=== PATIENT | male | born 1975 | race Caucasian/White ===

== ENCOUNTER 2017-02-07 17:11 | Emergency (ER) | payer SELFPAY ==
[2017-02-07] MEDS ORDERED: ONDANSETRON HCL INJ/PF 4 MG/2 ML SDV IV ONE (19:27)
[2017-02-07] MEDS ORDERED: HYDROMORPHONE HCL INJ/PF 2 MG/ML AMPULE IV ONE ×2 (19:27→21:48)
[2017-02-07] MEDS ORDERED: CLINDAMYCIN 600 MG/D5W RTU 50 ML IV ONE (19:27)
[2017-02-07] MEDS ORDERED: NORMAL SALINE 1000 ML 1,000 ML IV PRN (19:27)
--- NOTE | 2017-02-07 19:31 | ER Document Report ---
ED Medical Screen (RME) - General Chief Complaint: Testicular Pain Stated Complaint: TESTICULAR SWELLING Time Seen by Provider: 02/07/17 19:21 Mode of Arrival: Ambulatory Information source: Patient, [facility] Records TRAVEL OUTSIDE OF THE [place] IN LAST 30 DAYS: No - HPI Patient complains to provider of: scrotal pain Onset: Yesterday Onset/Duration: Gradual, Constant Quality of pain: Dull Severity: Moderate Associated Symptoms: None Exacerbated by: Denies Relieved by: Denies Similar symptoms previously: No Recently seen / treated by doctor: No Notes: 02/07/17 19:28 Patient is a 41-year-old male who presents with 2 days of progressive right testicular pain, swelling, and erythema. Patient denies any penile discharge or dysuria. No recent testicular trauma. No prior history of similar symptoms. No fevers. - Related Data Smoking: Non-smoker Allergies/Adverse Reactions: No Known Allergies Allergy (Verified 02/07/17 17:25) Past Medical History - General Information source: Patient, [facility] Records - Social History Frequency of alcohol use: None Drug Abuse: None - Medical History Medical History: Negative Renal/ Medical History: Denies: Hx Peritoneal Dialysis Past Surgical History: Reports: Hx Inguinal Hernia - Immunizations Hx Diphtheria, Pertussis, Tetanus Vaccination: Yes Review of Systems - Review of Systems Genitourinary: Other - Testicular pain -: Yes All other systems reviewed and negative Physical Exam - Vital signs Vitals: Temp Pulse Resp BP Pulse Ox 98.6 F 113 H 20 136/79 H 100 02/07/17 17:25 02/07/17 17:25 02/07/17 17:25 02/07/17 17:25 02/07/17 17:25 Interpretation: Normal, Tachycardic - General General appearance: Appears well, Alert In distress: Mild - Appears quite uncomfortable, diaphoretic - Respiratory Respiratory status: No respiratory distress Chest status: Nontender Breath sounds: Normal Chest palpation: Normal - Cardiovascular Rhythm: Regular Heart sounds: Normal auscultation Murmur: No - Abdominal Inspection: Normal Distension: No distension Bowel sounds: Normal Tenderness: Nontender Organomegaly: No organomegaly - Genitourinary Tenderness: Testicle tender, Other - Right hemiscrotum is moderately erythematous, exquisitely tender to palpation. Circumcised male. No penile discharge. - Extremities General upper extremity: Normal inspection, Nontender, Normal color, Normal ROM , Normal temperature General lower extremity: Normal inspection, Nontender, Normal color, Normal ROM , Normal temperature, Normal weight bearing. No: Presley's sign - Neurological Neuro grossly intact: Yes Cognition: Normal Orientation: AAOx4 [place] Coma Scale Eye Opening: Spontaneous [place] Coma Scale Verbal: Oriented [place] Coma Scale Motor: Obeys Commands Hayde Coma Scale Total: 15 Speech: Normal Motor strength normal: LUE, RUE, LLE, RLE Sensory: Normal - Skin Skin Moisture: Diaphoretic Course - Re-evaluation Re-evalutation: 02/07/17 19:30 Patient with likely scrotal cellulitis. Ultrasound pending. Patient will require further evaluation and management in the emergency department treatment area. Disposition is pending that evaluation. - Vital Signs Vital signs: Temp Pulse Resp BP Pulse Ox 98.6 F 113 H 20 136/79 H 100 02/07/17 17:25 02/07/17 17:25 02/07/17 17:25 02/07/17 17:25 02/07/17 17:25
[2017-02-07 20:18] LABS: ABSOLUTE EOSINOPHILS # (AUTO) 0.1 10^3/uL (0.0-0.6); ABSOLUTE LYMPHOCYTES (AUTO) 1.7 10^3/uL (0.5-4.7); ABSOLUTE MONOCYTES (AUTO) 1.5 10^3/uL (0.1-1.4); ABSOLUTE NEUT (AUTO) 13.6 10^3/uL (1.7-8.2); BASOPHILS % (AUTO) 0.2 % (0-2); EOSINOPHILS % (AUTO) 0.5 % (0-6); HEMATOCRIT 43.3 % (37.9-51.0); HEMOGLOBIN 14.3 g/dL (13.5-17.0); HGB HCT DIFFERENCE -0.4; MEAN CORPUSCULAR HEMOGLOBIN 28.2 pg (27.0-33.4); MEAN CORPUSCULAR HGB CONC 32.9 g/dL (32.0-36.0); MEAN CORPUSCULAR VOLUME 86 fl (80-97); MONOCYTES % (AUTO) 9.1 % (3-13); RED BLOOD COUNT 5.06 10^6/uL (4.35-5.55); RED CELL DISTRIBUTION WIDTH 13.2 % (11.5-14.0); SEGMENTED NEUTROPHILS % (AUTO) 80.2 % (42-78)
[2017-02-07 20:35] LABS: ALANINE AMINOTRANSFERASE 23 U/L (21-72); ALBUMIN 4.3 g/dL (3.5-5.0); ALKALINE PHOSPHATASE 99 U/L (38-126); ANION GAP 12 (5-19); ASPARTATE AMINO TRANSFERASE 20 U/L (17-59); BILIRUBIN,DIRECT 0.2 mg/dL (0.0-0.4); BILIRUBIN,TOTAL 0.6 mg/dL (0.2-1.3); BLOOD UREA NITROGEN 17 mg/dL (7-20); CALCIUM 9.7 mg/dL (8.4-10.2); CARBON DIOXIDE 29 mmol/L (22-30); CHLORIDE 100 mmol/L (98-107); CREATININE RESULT 0.87 mg/dL (0.52-1.25); GLUCOSE 96 mg/dL (75-110); SODIUM 141.1 mmol/L (137-145); TOTAL PROTEIN 7.6 g/dL (6.3-8.2)
--- NOTE | 2017-02-07 21:38 | RADIOLOGY REPORT (SQ) ---
EXAM DESCRIPTION: U/S SCROTUM W/DOPPLER COMPLETED DATE/TIME: 02/07/2017 9:24 pm REASON FOR STUDY: right testicular swelling and pain COMPARISON: None. TECHNIQUE: Static and realtime calderon scale imaging of the scrotum and testes. Selected color Doppler and spectral images recorded to document blood flow. LIMITATIONS: None. FINDINGS: RIGHT: TESTICLE: Normal size. Normal echotexture. Normal blood flow. No mass. EPIDIDYMIS: Slightly heterogeneous HYDROCELE OR VARICOCELE: Small hydrocele HERNIA OR EXTRA-TESTICULAR MASS: No. OTHER: No other significant finding. LEFT: TESTICLE: Normal size. Normal echotexture. Normal blood flow. No mass. EPIDIDYMIS: Small cyst. Heterogeneous. HYDROCELE OR VARICOCELE: Small hydrocele HERNIA OR EXTRA-TESTICULAR MASS: No. OTHER: No other significant finding. IMPRESSION: No evidence for testicular mass or torsion. Bilateral small hydroceles. TECHNICAL DOCUMENTATION: JOB ID: [id number] [employer]- All Rights Reserved
[2017-02-07] MEDS ORDERED: CEFTRIAXONE 1 GM/D5W RTU 50 ML IV ONE (21:47)
--- NOTE | 2017-02-07 21:48 | ER Document Report ---
ED GI/ - General Mode of Arrival: Ambulatory Information source: Patient TRAVEL OUTSIDE OF THE [place] IN LAST 30 DAYS: No <MYRA MALDONADO - Last Filed: 02/07/17 23:59> <TEETEE KILLIAN - Last Filed: 02/08/17 00:18> - General Chief Complaint: Testicular Pain Stated Complaint: TESTICULAR SWELLING Time Seen by Provider: 02/07/17 19:21 Notes: Patient is a 5-year-old male who presents to the emergency department today with complaints of right-sided testicular pain. Patient states it began yesterday and started gradually. Patient is sexually active. Patient denies any pain with bowel movement. (MYRA MALDONADO) - Related Data Allergies/Adverse Reactions: No Known Allergies Allergy (Verified 02/07/17 17:25) Past Medical History - General Information source: Patient, [facility] Records - Social History Smoking Status: Current Every Day Smoker Cigarette use (# per day): Yes Frequency of alcohol use: None Drug Abuse: None Lives with: Family Family History: Reviewed & Not Pertinent Patient has suicidal ideation: No Patient has homicidal ideation: No - Medical History Medical History: Negative Past Surgical History: Reports: Hx Inguinal Hernia - Immunizations Hx Diphtheria, Pertussis, Tetanus Vaccination: Yes <MYRA MALDONADO - Last Filed: 02/07/17 23:59> Review of Systems - Review of Systems Constitutional: No symptoms reported EENT: No symptoms reported Cardiovascular: No symptoms reported Respiratory: No symptoms reported Gastrointestinal: See HPI, Other - denies pain with bowel movements Genitourinary: No symptoms reported Male Genitourinary: See HPI, Testicular pain - right Musculoskeletal: No symptoms reported Skin: No symptoms reported Hematologic/Lymphatic: No symptoms reported Neurological/Psychological: No symptoms reported -: Yes All other systems reviewed and negative <MYRA MALDONADO - Last Filed: 02/07/17 23:59> Physical Exam <MYRA MALDONADO - Last Filed: 02/07/17 23:59> - Genitourinary Inspection: Normal Tenderness: Testicle tender - right, Epididymis tender - right Scrotum: Swelling, Redness - No TTP on left. No TTP of skin of scrotum <TEETEE KILLIAN - Last Filed: 02/08/17 00:18> - Vital signs Vitals: Temp Pulse Resp BP Pulse Ox 98.6 F 113 H 20 136/79 H 100 02/07/17 17:25 02/07/17 17:25 02/07/17 17:25 02/07/17 17:25 02/07/17 17:25 - Notes Notes: Physical Exam: General: Alert, appears well. HEENT: Normocephalic. Atraumatic. PERRL. Extraocular movements intact. Oropharynx clear. Neck: Supple. Non-tender. Respiratory: No respiratory distress. Clear and equal breath sounds bilaterally. Cardiovascular: Regular rate and rhythm. Abdominal: Normal Inspection. Non-tender. No distension. Normal Bowel Sounds. Back: Non-tender. No deformity or step off. Extremities: Moves all four extremities. Upper extremities: Normal inspection. Normal ROM. Lower extremities: Normal inspection. No edema. Normal ROM. Neurological: Normal cognition. AAOx4. Normal speech. Psychological: Normal affect. Normal Mood. Skin: Warm. Dry. Normal color. (MYRA MALDONADO) Course - Laboratory Result Diagrams: 02/07/17 19:40 02/07/17 19:40 <MYRA MALDONADO - Last Filed: 02/07/17 23:59> - Laboratory Result Diagrams: 02/07/17 19:40 02/07/17 19:40 <TEETEE KILLIAN - Last Filed: 02/08/17 00:18> - Re-evaluation Re-evalutation: 02/08/17 00:17 Patient is a 5-year-old male who comes in complaining of right testicular pain. No acute findings on ultrasound. Patient also has urine consistent with a urinary tract infection. Patient has redness and swelling of his right testicle. Patient is not tender over his left testicle for the rest of the scrotum. Initially was concerned about scrotal wall cellulitis, but the pain and redness is really isolated to the right side. Patient will be discharged home after getting a dose of clindamycin and ceftriaxone here in the emergency department he is to follow-up with urology. Of note, discussed with urology and they do not think that the patient needs to be transferred. If it appeared to be a scrotal wall cellulitis, and he would admit to medicine. Again it does not appear to be that at this time but more a picture of UTI and epididymitis. ( TEETEE KILLIAN) - Vital Signs Vital signs: Temp Pulse Resp BP Pulse Ox 97.9 F 100 16 112/70 94 02/07/17 23:06 02/07/17 23:06 02/07/17 23:06 02/07/17 23:06 02/07/17 23:06 - Laboratory Laboratory results interpreted by me: 02/07/17 02/07/17 19:40 22:59 WBC 17.0 H Seg Neutrophils % 80.2 H Lymphocytes % 10.0 L Absolute Neutrophils 13.6 H Absolute Monocytes 1.5 H Urine Protein 100 H Urine Blood MODERATE H Ur Leukocyte Esterase MODERATE H Discharge <MYRA MALDONADO - Last Filed: 02/07/17 23:59> <TEETEE KILLIAN - Last Filed: 02/08/17 00:18> - Discharge Clinical Impression: Epididymitis UTI (urinary tract infection) Qualifiers: Urinary tract infection type: site unspecified Hematuria presence: with hematuria Qualified Code(s): N39.0 - Urinary tract infection, site not specified ; R31.9 - Hematuria, unspecified Condition: Stable Disposition: HOME, SELF-CARE Instructions: Urinary Tract Infection ([facility]), Epididymitis ([facility]) Prescriptions: Cephalexin Monohydrate [Keflex 500 mg Capsule] 500 mg PO QID #40 capsule Doxycycline Monohydrate 100 mg PO BID #20 capsule Oxycodone HCl/Acetaminophen [Percocet 5-325 mg Tablet] 1 - 2 tab PO Q4H PRN #20 tablet PRN Reason: Forms: Return to Work Referrals: ALISA REYNOSO MD [ACTIVE STAFF] - Follow up as needed Scribe Attestation: 02/08/17 00:18 I personally performed the services described in the documentation, reviewed and edited the documentation which was dictated to the scribe in my presence, and it accurately records my words and actions. (TEETEE KILLIAN) Scribe Documentation - Scribe Written by Scribe:: Karthik Olivera, 02/07/2017 [id number] acting as scribe for :: Luz <MYRA MALDONADO - Last Filed: 02/07/17 23:59>
[2017-02-07 23:15] LABS: APPEARANCE,URINE CLOUDY; BILIRUBIN,URINE NEGATIVE (NEGATIVE); GLUCOSE, URINE NEGATIVE (NEGATIVE); KETONES,URINE NEGATIVE (NEGATIVE); LEUKOCYTE ESTERASE,URINE MODERATE (NEGATIVE); NITRITE,URINE NEGATIVE (NEGATIVE); PROTEIN,URINE 100 mg/dL (NEGATIVE); UROBILINOGEN,URINE NEGATIVE mg/dL (<2.0)
[2017-02-07] MEDS ORDERED: DOXYCYCLINE HYCLATE 100 MG TABLET PO ONE (23:26)
[2017-02-07] MEDS ORDERED: HYDROCODONE/ACETAMINOPHEN 5-325 MG 6 TAB/DSPK PO PRN (23:47)
[2017-02-07] MEDS ORDERED: ONDANSETRON ODT 4 MG TAB (6 TAB/DSPK) PO PRN (23:48)
[2017-02-08 00:33] VITALS: BP 128/72
== END 2017-02-08 00:26 | disposition home or self-care (01) ==
LOC: ER 17:11
DX: N45.1 Epididymitis (principal); N39.0 Urinary tract infection, site not specified; R31.9 Hematuria, unspecified; F17.210 Nicotine dependence, cigarettes, uncomplicated
CPT/HCPCS: 96376; 99284; 96375; 96365; 96367; 36415; 87040; 85025; 80053; 81001; 76870; 93976; J1170; J2405; J7030; J0696